=== PATIENT | female | born 1990 | race Caucasian/White ===

== ENCOUNTER 2019-03-07 06:29 | Emergency (ER) | payer OTHER ==
[~2019-03-07] VITALS: Ht 149.9 cm; Wt 68.0 kg
[~2019-03-07 06:29] MED LIST: CIPROFLOXACIN500 M1 PO; FLAGYL500 MG PO; IBUPROFEN 600600 M1 PO; KELNOR 1-351 EACH PO; LEVAQUIN 500 M500 MG PO; PROVENTIL HFA6.7 G1 INH; TOPROL XL25 MG PO; ULTRAM 50MG TAB50 MG PO; ZOFRAN ODT4 MG PO
[2019-03-07 07:51] LABS: URINE BILIRUBIN NEGATIVE (Negative); URINE BLOOD 3+ (Negative); URINE CLARITY SL CLOUDY; URINE COLOR YELLOW; URINE GLUCOSE-RANDOM* NEGATIVE (Negative); URINE KETONES NEGATIVE (Negative); URINE NITRITE-REFLEX NEGATIVE (Negative); URINE PROTEIN (DIPSTICK) NEGATIVE (Negative); URINE SPECIFIC GRAVITY 1.025 (1.005-1.035); URINE UROBILINOGEN 0.2 E.U./dl (0.2-1.0)
[2019-03-07 07:54] LABS: URINE LEUKOCYTES-REFLEX 2+ (Negative)
[2019-03-07 07:57] LABS: ABSOLUTE NEUTROPHILS 7.1 thou/uL (1.4-8.2); BASOPHILS 0.8 % (0.0-2.0); EOSINOPHILS 0.8 % (0.0-3.0); HEMOGLOBIN 13.4 gm/dL (12.0-15.0); LYMPHOCYTES 16.3 % (24.0-44.0); MCH 28.3 pg (26.0-34.0); MCHC 32.8 g/dL (28.0-37.0); MCV 86.4 fL (80.0-100.0); MONOCYTES 3.8 % (1.0-8.0); PLATELET COUNT 285 thou/uL (150-400); POLYS 78.3 % (36.0-66.0); RBC 4.74 mil/uL (4.20-5.00); RDW 13.1 % (10.5-14.5)
[2019-03-07] MEDS ORDERED: BUTALB-APAP-CA1 EACH PO ×2 (08:22→08:57)
[2019-03-07] MEDS ORDERED: MACROBID 100 M100 M1 PO (08:22)
[2019-03-07] MEDS ORDERED: PROMS25 WY RECTAL (08:22)
[2019-03-07 08:32] LABS: SQUAMOUS >10 Many /LPF (0-3)
[2019-03-07 08:33] LABS: BACTERIA-REFLEX 1-9 Few /HPF (None Seen); CASTS None Seen /LPF (None Seen); CRYSTALS None Seen /LPF (None Seen)
[2019-03-07 08:42] VITALS: BP 114/71
== END 2019-03-07 08:42 | disposition home or self-care (01) ==
LOC: ER 06:29
PROVIDERS: Emergency Medicine
DX: G43.809 Other migraine, not intractable, without status migrainosus (principal); N39.0 Urinary tract infection, site not specified; M62.48 Contracture of muscle, other site

== ENCOUNTER 2020-10-18 15:56 | Emergency (ER) | payer BC, OTHER ==
[~2020-10-18] VITALS: Ht 149.9 cm; Wt 68.0 kg
[~2020-10-18 15:56] MED LIST changes: +BUTALB-APAP-CA1 EACH PO; +MACROBID 100 M100 M1 PO; +PROMS25 WY RECTAL
[2020-10-18 15:59] VITALS: BP 132/92
[2020-10-18] MEDS ORDERED: DEMULEN 1-35-21 EACH PO (16:02)
[2020-10-18] MEDS ORDERED: NADOLOL 20 MG T20 M1 PO (16:02)
[2020-10-18] MEDS ORDERED: SUMATRIPTAN SU100 MG PO (16:03)
[2020-10-18 16:26] LABS: URINE BILIRUBIN NEGATIVE (Negative); URINE BLOOD TRACE (Negative); URINE CLARITY SL CLOUDY; URINE COLOR YELLOW; URINE GLUCOSE-RANDOM* 3+ (Negative); URINE KETONES NEGATIVE (Negative); URINE LEUKOCYTES-REFLEX TRACE (Negative); URINE NITRITE-REFLEX NEGATIVE (Negative); URINE PROTEIN (DIPSTICK) NEGATIVE (Negative); URINE SPECIFIC GRAVITY >= 1.030 (1.005-1.035); URINE UROBILINOGEN 0.2 E.U./dl (0.2-1.0)
[2020-10-18] MEDS ORDERED: MOBIC7.5 MG PO (16:42)
[2020-10-18] MEDS ORDERED: ZANAFLEX4 MG PO (16:43)
== END 2020-10-18 17:09 | disposition home or self-care (01) ==
LOC: ER 15:56
PROVIDERS: Nurse Practitioner
DX: S39.012A Strain of muscle, fascia and tendon of lower back, initial encounter (principal); X50.1XXA Overexertion from prolonged static or awkward postures, initial encounter; Y93.89 Activity, other specified; Y92.89 Other specified places as the place of occurrence of the external cause; Y99.8 Other external cause status; Z79.899 Other long term (current) drug therapy